=== PATIENT | male | born 1950 | race Caucasian/White ===

== ENCOUNTER → 2019-05-15 10:03 | Outpatient (CLI) | payer MEDICARE, OTHER, SELFPAY ==
--- NOTE | 2019-05-15 10:10 | CA_ITS ---
APPROVED REPORT EXAM: Comprehensive 2D, Doppler, and color-flow Echocardiogram Keeper Head: Chari Covarrubias CRT Ht: 6 ft 3 in Wt: 333lbs BSA: 2.72 BP: 116/58 mmHg Indications: cm, chf, afib, aicd, julissa 2D Dimensions LVOT 1.81 cm (M/F) 1.5-2.5 M-Mode Dimensions RVDd 1.84 cm (0.9-2.6) LVDd 6.84 cm (3.5-5.7) LVDs 5.25 cm (3.5-5.7) IVSd 1.44 cm (0.6-1.1) PWd 1.03 cm (0.6-1.1) EF (Teich) 45.40% FS 23.20% EDV (Teich) 242.40 mL ESV (Teich) 132.40 mL LV Diastology E/A Ratio 0.86 Mitral Valve MV A Velocity 79.00 (40-130 cm/s) Left Ventricle Technically very difficult study because of the patient fact in poor acoustic windows, repeat study with Definity contrast is recommended. The left atrium is mildly enlarged, left ventricle is normal size, mild concentric left ventricular hypertrophy, visually estimated ejection fraction approximately 40%, there appears to be hypokinesis involving the distal septum. Repeat study with Definity contrast is recommended recommended. Diastolic parameters are inconclusive there is no tissue Doppler performed. Right Ventricle Right atrium and right ventricular poorly visualized. Contractility of the right ventricle appears to be normal, historically patient has an AICD which is not well-visualized in the study. Aortic Valve Aortic valve is thickened and calcified leaflet chordae display mobility, there is no aortic stenosis, there is mild aortic insufficiency. Mitral Valve Mitral valve leaflets are minimally thickened, there is no mitral stenosis, there is mild mitral regurgitation. Tricuspid Valve Tricuspid valve is grossly normal, there is mild tricuspid regurgitation. Pulmonic Valve Pulmonic valve is poorly visualized. Great Vessels Aortic root is normal size. Pericardium No significant pericardial effusion noted. Conclusion 1. Mildly enlarged left atrium, normal left ventricular size, mild concentric left ventricular hypertrophy, visually estimated ejection fraction probably 40% with segmental wall motion abnormality described above, endocardial surfaces are very poorly visualized, repeat study with Definity contrast is recommended. Diastolic parameters are inconclusive, there is no tissue Doppler performed. 2. Thickened and calcified aortic valve without Doppler evidence of aortic stenosis, there is mild aortic insufficiency. 3. Mild mitral and tricuspid regurgitation. 4. No significant pericardial effusion noted. Electronically signed by : Napoleon Dumont, 05/16/2019 05:54:12
== END ==
PROVIDERS: PCP Family Medicine; Visit Provider Internal Medicine
DX: I42.9 Cardiomyopathy, unspecified; E78.5 Hyperlipidemia, unspecified; I11.9 Hypertensive heart disease without heart failure; I25.10 Atherosclerotic heart disease of native coronary artery without angina pectoris; I48.91 Unspecified atrial fibrillation; G47.33 Obstructive sleep apnea (adult) (pediatric); Z79.01 Long term (current) use of anticoagulants; Z95.810 Presence of automatic (implantable) cardiac defibrillator
CPT/HCPCS: 93306

== ENCOUNTER 2020-07-04 09:31 | Day surgery (SDC) | payer MEDICARE, OTHER, SELFPAY ==
--- NOTE | 2020-07-04 | IR_ITS ---
APPROVED REPORT Patient Location: Outpatient Engine Watchman: LORETTA Godwin RT (R) PROCEDURES Pocket Revision Removal of old Pacemaker Implant of Permanent Pacemaker INDICATION Ischemic Cardiomyopathy, End of Battery Life Informed consent was obtained prior to the procedure. COMPLICATIONS NONE Estimated Blood Loss: LESS THAN 10 ML TECHNIQUE 1% lidocaine with epinephrine used to anesthetize the left anterior aspect of the chest. Scalpel was used to make the initial cutaneous incision and then used to dissect down to the existing pacemaker generator. The generator was removed from the existing pocket. Digital manipulation was required along with intermittent usage of scalpel in order to revise the pocket. The leads were removed from the old generator. The new generator was screwed to the existing leads and secured into place. Electronic interrogation proved acceptable thresholds and voltage within the lead. Antibiotics were used to flush the pocket and the pacemaker was secured using 3-0 silk into the newly revised pocket. Monocryl was used to close the subcutaneous tissue and then kathryn were placed on the cutaneous area in order to approximate the incision. Patient was transferred to the postop holding area in stable condition. INTERROGATION Implanted Generator Model number: VIGILANT X4 COCOA BEAN ROASTER-D, G247 Implanted Generator Serial number: [id number] Explanted Generator Model number: [employer], 3265-40q Explanted Generator Serial number: [id number] Atrial lead model number: Capsurefix MRI Bipolar, 5086MRI Atrial lead serial number: [id number] Sensitivity Output: 0.5mV 2.5V@0.4ms Right Ventricular lead model number: Durata SJ-4 Active fix Dual RV, 7120Q Right Ventricular lead serial number: [id number] Sensitivity Output: 0.6mV 2.0V@0.4ms Left Ventricular lead model number: [employer] Performa OTW IS4 Quad, 4298 Left Ventricular lead serial number: [id number] Sensitivity Output: 1.0mV 4.0V@1.0ms Pacing Parameters: Mode: DDDR Base/Max Track: 60/130 ppm ICD Rate Cutoffs: VT: 170 bpm, 5.0 sec (ATP, 41Jx6) VF: 200 bpm, 2.5 sec (41Jx8) No diaphragmatic stimulation at 10 volts. IMPRESSION 1. Successful Pocket Revision 2. Successful Removal of old Pacemaker 3. Successful Implant of Permanent Pacemaker PLAN 1. Post Op Wound Care Electronically signed by : Colton Sosa, 07/07/2020 11:26:33
[2020-07-04 09:38] VITALS: BMI 40.1
[2020-07-04 10:04] VITALS: BP 140/76; PULSE 80; RESP 16; O2SAT 94
[2020-07-04 10:08] LABS: Basophils # 0.1 K/mm3 (0-0.2); Basophils % 0.7 % (0.1-2.0); Eosinophils % 9.3 % (0.1-12.0); Hematocrit 39.4 % (42.0-52.0); Hemoglobin 13.2 g/dL (14.1-18.0); Lymphocytes % 19.3 % (10-50); Mean Corpuscular HGB Conc 33.4 g/dL (31.8-35.4); Mean Corpuscular Hemoglobin 29.4 pg (27.0-31.2); Mean Corpuscular Volume 88.2 fl (80-94); Mean Platelet Volume 7.6 fl (7.4-10.4); Monocytes # 0.7 K/mm3 (0.1-1.0); Monocytes % 6.7 % (1.7-9.3); Neutrophils # 6.7 K/mm3 (1.8-7.8); Neutrophils % 64.1 % (37.0-80.0); Platelet Count 239 K/mm3 (142-424); Red Blood Count 4.47 M/mm3 (4.60-6.20); Red Cell Distribution Width 13.8 % (11.5-17.5); White Blood Count 10.4 K/mm3 (4.8-10.8)
[2020-07-04 10:15] LABS: Chloride 96 mmol/L (98-107); Potassium 4.2 mmoL/L (3.5-5.1); Sodium 135 mmol/L (136-145)
[2020-07-04 10:18] LABS: Anion Gap 13.2 mEq/L (5-15); Blood Urea Nitrogen 22 mg/dl (9-20); Calcium 9.4 mg/dl (8.4-10.2); Carbon Dioxide 30 mmol/L (22.0-30.0); Creatinine Clearance Estimated 140 mL/min (50-200); Estimated Glomerular Filt Rate 74 ml/min (>60); GFR (African American) 89 ML/MIN (>60); Glucose 238 mg/dl (74-100)
[2020-07-04 10:33] LABS: Coronavirus 19 IgG Antibody Positive (Negative); Coronavirus 19 IgM Antibody Negative (Negative)
[2020-07-04 14:43] VITALS: BP 133/73; PULSE 78; RESP 18; TEMP 36.8; O2SAT 95
[2020-07-04 14:50] VITALS: BP 129/79; PULSE 81; RESP 18; O2SAT 95
--- NOTE | 2020-07-04 15:00 | P.PN_ITS ---
[facility] Anesthesia Checklist - Patient Identification Patient Identification: Arm Band - Structural Data Admitted From: Home Planned Operative Procedure/s: AICD generator change Consent for Planned Operative Procedure(s) Verified: Yes Verified Documents: Surgical Consent, History and Physical - NPO Status Verified Time NPO: 00:00 - Additional verifications Anesthesia Reactions: No - Airway Assessment C-Spine Mobility Assessed: Yes (mp2) TMJ Mobility Assessed: Yes Dentition: Good Dentition - Neurological Assessment Level of Consciousness: Awake, Alert - Anesthesia Plan Anesthesia Risk discussed: Yes Anesthesia Plan: Verified ASA Class: III Anesthesia Type: MAC [facility] History I have reviewed the patient's past medical history: Yes Medical History: Reports:: Atrial Fibrillation, Cardiomyopathy, Congestive Heart Failure, Coronary Artery Disease, Diabetes Mellitus Type 2, Gastroesophageal Reflux Disease(GERD), Hyperlipidemia, Hypertension, Internal Pacemaker *Have you ever received a pneumonia vaccine?: Yes *Have you received a flu vaccine this season?: Yes Other Medical History: Reports: Hypothyroidism Anesthesia experience/problems:: nac Other Surgeries: Yes: Angioplasty (03/29/13 no stents), Cardiac Catheterization, Pacemaker - *Social History Last grade of school completed: Some college Smoking Status: Former smoker Alcohol Intake: never Substance Use Type: denies use *Occupational Status:: retired Housing: house Household Members: spouse *Travel in the last 8 weeks: None Family Hx:: Coronary Artery Disease
== END 2020-07-04 15:08 | disposition home or self-care (01) ==
LOC: CATHLAB 09:33
PROVIDERS: PCP Family Medicine; Visit Provider Internal Medicine
DX: T82.111A Breakdown (mechanical) of cardiac pulse generator (battery), initial encounter; Z45.02 Encounter for adjustment and management of automatic implantable cardiac defibrillator; I11.0 Hypertensive heart disease with heart failure; I48.0 Paroxysmal atrial fibrillation; I25.5 Ischemic cardiomyopathy; G47.33 Obstructive sleep apnea (adult) (pediatric); I25.10 Atherosclerotic heart disease of native coronary artery without angina pectoris; Z79.01 Long term (current) use of anticoagulants; Z79.899 Other long term (current) drug therapy; Z79.84 Long term (current) use of oral hypoglycemic drugs
CPT/HCPCS: 33263; 80048; 85025; 86328; C1882